=== PATIENT | female | born 1960 | race Caucasian/White ===

== ENCOUNTER 2022-04-09 11:25 | Emergency (ER) | payer BC, SELFPAY ==
--- NOTE | ~2022-04-09 | XR_ITS ---
EXAMINATION: XR chest 2V DATE: 04/09/2022 12:22 INDICATION: Fever. Cough. TECHNIQUE: Frontal and lateral views of the chest were obtained. COMPARISON: None. FINDINGS: There is mild scarring at the lung apices. There is mild atelectasis in left lower lobe. No pleural effusion or pneumothorax. The heart size is normal. There are changes of anterior fusion pro cedure in cervical spine. IMPRESSION: 1. Mild atelectasis in left lower lobe and mild scarring at the lung apices. Reviewed, dictated and finalized at location A. OR TECHNICIAN
--- NOTE | 2022-04-09 11:32 | ED.URI ---
HPI - URI/Sore Throat General Chief Complaint: Upper Respiratory Infection Stated Complaint: poss bronchitis Time Seen by Provider: 04/09/22 11:58 Source: patient and RN notes reviewed Mode of arrival: ambulatory Limitations: no limitations History of Present Illness HPI Narrative: 62-year-old female presents concern for 12 day history of, nasal congestion, rhinorrhea. She reports her chest hurts when she coughs. She reports she had negative COVID and flu test. Reports history of bronchitis. She is a smoker. MD elicited complaint: cough and sore throat Related Data Home Medications Medication Instructions Recorded Confirmed amlodipine 5 mg tablet mg 04/09/22 conjugated estrogens 1.25 mg mg 04/09/22 tablet (Premarin) diclofenac sodium 75 mg mg PO 04/09/22 tablet,delayed release rosuvastatin 5 mg tablet mg 04/09/22 Allergies Allergy/AdvReac Type Severity Reaction Status Date / Time bupropion [From Wellbutrin] Allergy Hives Verified 04/09/22 11:38 naproxen [From Naprosyn] Allergy Hives Verified 04/09/22 11:38 Review of Systems Review of Systems: CONSTITUTIONAL: Reports malaise, fever. EYES: Denies visual changes, redness, or discharge. ENT: Reports rhinorrhea, congestion, sinus pain CARDIOVASCULAR: Denies chest pain, palpitations, or edema. RESPIRATORY: Reports cough. Denies dyspnea. GASTROINTESTINAL: Denies abdominal pain, nausea, vomiting, diarrhea SKIN: Denies rash or itching. MUSCULOSKELETAL: Denies myalgia. NEUROLOGIC: Denies headache. All systems reviewed & are unremarkable except as noted in HPI and below [facility] Comments At time of signature, agree with nursing past medical, surgical, social and family history. There is no relevant family history pertinent to the presenting complaint Exam Narrative: GENERAL: Nontoxic appearing and in no acute distress. HEAD: Normocephalic EYES: PERRLA, conjunctivae clear ENT: Nares clear, turbinates edematous and erythematous. Mucous membranes moist. TM pearly stearns with dull light reflex bilaterally; no tragal tenderness. Oropharynx not erythematous without lesions. Tonsils not enlarged and without exudate, no drooling, no hoarseness, no trismus, uvula midline. NECK: Supple. No lymphadenopathy CHEST: Clear to auscultation, breath diminished in bases. No wheezing, rhonchi, rales, or stridor. No respiratory distress, speaks in full sentences. HEART: Regular rate and rhythm. No murmur heard. SKIN: Warm, dry, no rash. NEURO: Alert and oriented x3. PSYCH: Normal mood and affect Course Course Emergency Course: Patient is aware of diagnosis, understands and agrees to treatment plan. Anticipatory guidance given. Patient agrees to follow-up as directed and is aware of reasons to seek care at the emergency department. Portions of this record may have been created with voice recognition software Level of Care: Express Care Visit Vital Signs Vital signs: Vital Signs Temperature 98 F 04/09/22 11:39 Pulse Rate 82 04/09/22 11:39 Respiratory Rate 16 04/09/22 11:39 Blood Pressure 129/77 04/09/22 11:39 Pulse Oximetry 95 04/09/22 11:39 Oxygen Delivery Room Air 04/09/22 11:39 Temperature 98 F 04/09/22 11:39 Pulse Rate 82 04/09/22 11:39 Respiratory Rate 16 04/09/22 11:39 Blood Pressure 129/77 04/09/22 11:39 Pulse Oximetry 95 04/09/22 11:39 Oxygen Delivery Room Air 04/09/22 11:39 Reviewed. MDM - URI/Sore Throat MDM Narrative Medical decision making narrative: Differential diagnosis considered: Dias virus, strep pharyngitis, allergic rhinitis, upper respiratory tract infection, sinusitis, rhinosinusitis, nasopharyngitis. viral pharyngitis, otitis media, otitis externa, pneumonia, bronchitis, viral cough syndrome, viral syndrome, and influenza. Exam findings show no acute concerns or changes; patient is non-toxic appearing and is in no distress. Patient is appropriate for outpatient treatment and follow-up. Lab Data Atte
[2022-04-09 11:39] VITALS: BP 129/77; PULSE 82; RESP 16; TEMP 36.6; O2SAT 95
== END 2022-04-09 12:48 | disposition home or self-care (01) ==
PROVIDERS: Emergency Provider Nurse Practitioner; PCP Internal Medicine
DX: J40 Bronchitis, not specified as acute or chronic (principal)
CPT/HCPCS: 71046; 99213; G0463